=== PATIENT | male | born 1985 | race Caucasian/White ===

== ENCOUNTER 2017-08-15 16:21 | Emergency (ER) | END 2017-08-15 18:55 | disposition home or self-care (01) ==

== ENCOUNTER 2017-09-04 09:10 | Emergency (ER) | END 2017-09-04 11:52 | disposition home or self-care (01) ==

== ENCOUNTER 2017-12-20 08:01 | Day surgery (SDC) | END 2017-12-20 10:37 | disposition home or self-care (01) ==

== ENCOUNTER 2018-03-01 20:51 | Emergency (ER) | payer SELFPAY ==
[~2018-03-01] VITALS: Ht 165.1 cm; Wt 105.2 kg
[~2018-03-01 20:51] MED LIST: HYDR-4011 PO; OMEP20CA16 PO; ONDA4TAB35 PO; RANITIDINE; ZOFRAN
[2018-03-01 21:08] VITALS: BP 122/67; PULSE 120; RESP 18; Ht 165.1 cm; Wt 105.2 kg
== END 2018-03-02 00:36 | disposition left against medical advice (07) ==
LOC: FTE 20:51
DX: Z53.21 Procedure and treatment not carried out due to patient leaving prior to being seen by health care provider (principal)

== ENCOUNTER 2018-06-04 06:49 | Emergency (ER) | payer SELFPAY ==
[~2018-06-04] VITALS: Ht 165.1 cm; Wt 101.9 kg
[2018-06-04 06:51] VITALS: BP 139/87; PULSE 77; RESP 18; Ht 165.1 cm; Wt 101.9 kg
[2018-06-04] MEDS ORDERED: LIDOCAINE 1% (MDV) 20 ML INJ SC ONE (07:30)
[2018-06-04] MEDS ORDERED: TRAM50TA2 PO (07:46)
[2018-06-04] MEDS ORDERED: SULF1TAB31 PO (07:48)
--- NOTE | 2018-06-04 07:50 | ERD ---
ER Documentation Chief Complaint Chief Complaint abscess on right eyebrow HPI 32-year-old male with no reported past medical or surgical history who presents with abscess of right eyebrow. Said last week he saw what he thought was a lozoya and removed it. Since then has had increased right eyebrow swelling and pain and induration. Otherwise without complaint denies any vision changes, pain with eye movement. Reports all vaccinations up-to-date. Reported allergy to sulfa-based medications ROS All systems reviewed and are negative except as per history of present illness. Medications Home Meds Active Scripts Clindamycin Hcl* (Clindamycin Hcl*) 300 Mg Capsule, 300 MG PO QID for 7 Days, CAP Prov:KIERRA ZARATE PA-C 06/04/18 Tramadol HCl (Tramadol HCl) 50 Mg Tablet, 50 MG PO Q4 PRN for PAIN, #7 TAB Prov:KIERRA ZARATE PA-C 06/04/18 Hydrocodone/Acetaminophen ([place] 5-325 Tablet) 1 Each Tablet, 1 EACH PO Q6, #15 TAB Prov:ANT HORTA 08/15/17 Omeprazole* (Omeprazole*) 20 Mg Capsule.dr, 20 MG PO BID, #30 Prov:GEORGIANA PADGETT PA-C 12/08/15 Ondansetron Hcl* (Zofran* ODT) 4 mg -ODT Tab.disper, 4 MG PO Q6 PRN for NAUSEA AND/OR VOMITING, #30 TAB Prov:MG HARPER MD 07/21/15 Reported Medications [Zofran] No Conflict Check 12/20/17 [Ranitidine] No Conflict Check 12/20/17 Allergies Allergies: Coded Allergies: Sulfa (Sulfonamide Antibiotics) (Verified Allergy, Unknown, 06/04/18) PMhx/Soc History of Surgery: Yes (CHOLECYSTECTOMY) Anesthesia Reaction: No Hx Neurological Disorder: No Hx Respiratory Disorders: No Hx Cardiac Disorders: No Hx Psychiatric Problems: No Hx Miscellaneous Medical Probl: No Hx Alcohol Use: No Hx Substance Use: Yes (MARIJUANA) Hx Tobacco Use: No Smoking Status: Current some day smoker FmHx Family History: No diabetes, No coronary disease, No other Physical Exam Vitals Vital Signs Date Temp Pulse Resp B/P (MAP) Pulse Ox O2 O2 Flow FiO2 Time Delivery Rate 06/04/18 97.2 77 18 139/87 98 06:51 (104) Physical Exam I have reviewed the triage vital signs. Const: Well nourished, well developed, appears stated age Eyes: PERRL, no conjunctival injection, R eye with prominent erythema, induration, fluctuance, no corneal erythema, foreign body HENT: NCAT, Neck supple without meningismus CV: RRR, Warm, well-perfused extremities RESP: CTAB, Unlabored respiratory effort GI: soft, non-tender, non-distended, no masses MSK: No gross deformities appreciated Skin: Warm, dry. No rashes Neuro: grossly non focal Psych: Appropriate mood and affect. Results 24 hrs Current Medications Medications Dose Sig/Addis Start Time Status Last (Trade) Ordered Route PRN Stop Time Admin Dose Reason Admin Lidocaine 20 ml ONCE ONCE 06/04/18 DC (Xylocaine SC 07:30 1% (Mdv) 20 06/04/18 07:31 ml) Procedures/MDM 32-year-old male presented with right eyebrow ridge abscess. Tolerated procedure without any issues. Be sent home with appropriate pain medication as well as a course of antibiotic. Return in 48 hours for wound check Abscess Incision and Drainage with irrigation by me: Location: R eyebrow ridge Anesthesia: Local 1% Lidocaine Technique: Irrigated. Disrupted loculations w/ instrumentation and pressure Packing: None Complications: Neurovascularly intact post procedure Discharge with clindamycin antibiotic given sulfa allergy 48 hour wound check. Scar minimization instructions given. DISPOSITION PLAN: We discussed follow up with the patient's primary care doctor within 24 to 48 hours. Patient counseled regarding my diagnostic impression and care plan. Prior to discharge all questions answered. Pt agrees with treatment plan and understands strict return precautions. Precautionary instructions provided including instructions to return to the ER if not improving or for any worsening or changing symptoms or concerns. Departure Diagnosis: Primary Impression: Abscess Condition: Stable Patient Instructions: Abscess, Incision And Drainage Referrals: COMM[facility] YOU HAVE RECEIVED A MEDICAL SCREENING EXAM AND THE RESULTS INDICATE THAT YOU DO NOT HAVE A CONDITION THAT REQUIRES URGENT TREATMENT IN THE EMERGENCY DEPARTMENT. FURTHER EVALUATION AND TREATMENT OF YOUR CONDITION CAN WAIT UNTIL YOU ARE SEEN IN YOUR DOCTORS OFFICE WITHIN THE NEXT 1-2 DAYS. IT IS YOUR RESPONSIBILITY TO MAKE AN APPOINTMENT FOR FOLOW-UP CARE. IF YOU HAVE A PRIMARY DOCTOR --you should call your primary doctor and schedule an appointment IF YOU DO NOT HAVE A PRIMARY DOCTOR YOU CAN CALL OUR PHYSICIAN REFERRAL HOTLINE AT IF YOU CAN NOT AFFORD TO SEE A PHYSICIAN YOU CAN CHOSE FROM THE FOLLOWING [facility] [address] [facility] [address] [facility] [address] [facility] [address] [facility] [facility] [address] [facility]. [facility]. [address] Additional Instructions: Call your primary care doctor TOMORROW for an appointment during the next 2-3 days.See the doctor sooner or return here if your condition worsens before your appointment time. To emergency room in 48 hours for wound check. KIERRA ZARATE PA-C Jun 04, 2018 07:50
[2018-06-04] MEDS ORDERED: CLIN300C10 PO (10:18)
== END 2018-06-04 08:17 | disposition home or self-care (01) ==
LOC: FTE 06:49
DX: L02.01 Cutaneous abscess of face (principal); F17.210 Nicotine dependence, cigarettes, uncomplicated